=== PATIENT | male | born 1955 | race Caucasian/White ===

== ENCOUNTER 2017-06-23 20:15 | Emergency (ER) | payer MEDICARE, OTHER ==
[~2017-06-23] VITALS: Ht 190.5 cm; Wt 158.8 kg
[~2017-06-23 20:15] MED LIST: ASPIR-LOW81 MG PO; ASPIR-TRIN325 MG PO; IBUPROFEN IB200 MG PO; IRON325 M1 PO; LEVOTHYROXINE75 MCG PO; LISINOPRIL-HCT1 EAC2 PO; LISINOPRIL-HCT1 EACH PO; METOPROLOL TART50 MG PO; MIRALAX17 GM PO; NORCO 7.5-3251 EACH PO; OXYCODONE HCL5 MG PO; PIROXICAM20 MG PO; XARELTO10 MG PO
[2017-06-23] MEDS ORDERED: ATORVASTATIN CA40 MG PO (20:29)
[2017-06-23] MEDS ORDERED: VALACYCLOVIR500 MG PO (21:55)
[2017-06-23] MEDS ORDERED: PREDNISONE20 MG PO (21:55)
--- NOTE | 2017-06-24 12:06 | EKG ---
[facility] [address] [facility] [address] [place] [address] Signed Sinus bradycardia with premature atrial complexes Otherwise normal ECG No previous ECGs available Confirmed by RAOUL HUNT MD ([id number] on 06/24/2017 12:06:48 PM Electronically Signed By: RAOUL HUNT MD 06/24/17 1206 PATIENT NAME: DELON HENNESSY Electrocardiogram DATE OF : 51 PHYSICIAN: RAOUL HUNT MD REPORT #: [id number] REPORT IS CONFIDENTIAL AND NOT TO BE RELEASED WITHOUT AUTHORIZATION
== END 2017-06-23 22:29 | disposition home or self-care (01) ==
LOC: ED 20:15
DX: G51.0 Bell's palsy (principal); Z88.8 Allergy status to other drugs, medicaments and biological substances; Z79.899 Other long term (current) drug therapy; Z79.82 Long term (current) use of aspirin; Z79.52 Long term (current) use of systemic steroids
CPT/HCPCS: 70450; 71010; 80053; 84484; 85025; 85610; 85730; 93005; 93010; 99284; J7512